=== PATIENT | male | born 1940 | race Asian ===

== ENCOUNTER 2020-10-02 11:38 | Emergency (ER) | payer MEDICARE, OTHER ==
[~2020-10-02] VITALS: Ht 165.1 cm; Wt 68.0 kg
[2020-10-02 12:05] VITALS: BP 172/61
[2020-10-02 12:57] LABS: Basophils # (auto) 0 10 ^3/uL (0-0.2); Basophils % (auto) 0.4 % (0.0-2.0); Eosinophils # (auto) 0.1 10 ^3/uL (0-0.8); Eosinophils % (auto) 0.9 % (0.0-7.0); Hematocrit 34.3 % (41.0-53.0); Hemoglobin 11.7 g/dL (13.5-17.5); Lymphocytes # (auto) 1.1 10 ^3/uL (0.4-5.4); Lymphocytes % (auto) 17.2 % (10.0-50.0); Mean Corpuscular Hemoglobin 31.1 pg (28.0-32.0); Mean Corpuscular Volume 91.5 fL (80.0-100.0); Monocytes # (auto) 0.3 10 ^3/uL (0-1.3); Neutrophils # (auto) 4.8 10 ^3/uL (1.6-8.6); Neutrophils % (auto) 76.5 % (37.0-80.0); Nucleated Red Blood Cells % 0.1 %; Red Blood Cells 3.75 10^6/uL (4.5-5.90); Red Cell Distribution Width 13.3 % (11.8-14.3); White Blood Cell 6.2 10^3/uL (4.4-10.8)
[2020-10-02 13:15] LABS: Albumin 3.2 g/dL (3.4-5.0); Anion Gap 3 (5-15); Blood Urea Nitrogen 23 mg/dL (7-18); Calcium 8.2 mg/dL (8.5-10.1); Carbon Dioxide 29 mmol/L (21-32); Chloride 106 mmol/L (98-107); Glucose 325 mg/dL (74-106); Magnesium 2.4 mg/dL (1.6-2.6); Potassium 4.6 mmol/L (3.5-5.1); Sodium 138 mmol/L (136-145)
[2020-10-02 13:20] LABS: BUN/Creatinine Ratio 21.1; GFR African American 84 mL/min
[2020-10-02 13:21] LABS: Alanine Aminotransferase 23 U/L (16-61); Alkaline Phosphatase 71 U/L (45-117); Aspartate Aminotransferase 20 U/L (15-37); Bilirubin, Total 0.3 mg/dL (0.2-1.0); GFR Non-African American 70 mL/min; Total Protein 6.7 g/dL (6.4-8.2)
== END 2020-10-02 19:41 | disposition left against medical advice (07) ==
LOC: EDBD 11:38 → ER 11:38
DX: R07.9 Chest pain, unspecified (principal); Z53.21 Procedure and treatment not carried out due to patient leaving prior to being seen by health care provider
CPT/HCPCS: 36415; 71045; 80053; 83735; 84484; 85025; 93005